=== PATIENT | female | born 1985 | race Caucasian/White ===

== ENCOUNTER 2020-01-22 17:33 | Emergency (ER) | payer SELFPAY ==
[~2020-01-22] VITALS: Ht 180.3 cm; Wt 63.0 kg
--- NOTE | 2020-01-22 17:43 | NUR ---
Contact Kimber Cruz, grandmother, for transportation @ timeof discharge.
[2020-01-22 18:19] LABS: URINE HCG NEGATIVE (NEG)
[2020-01-22 18:22] LABS: COLOR,URINE YELLOW (Yellow); GLUCOSE, URINE NEGATIVE (Neg); KETONES,URINE NEGATIVE (Neg); LEUKOCYTE ESTERASE ,URINE LARGE (Neg); NITRITES, URINE NEGATIVE (Neg); OCCULT BLOOD,URINE SMALL (Neg); PH,URINE 6.5 (4.8-8.0); PROTEIN,URINE NEGATIVE (Neg); UROBILINOGEN,URINE 0.2 E.U/dL (0.2-1.0)
[2020-01-22 18:23] LABS: CLARITY,URINE SLIGHTLY CLOUDY (Clear); UA COLLECTION TYPE CLN CATCH MIDSTREAM
[2020-01-22 18:32] LABS: BACTERIA,URINE FEW /HPF (Neg); RBC,URINE 0-2 /HPF (0-2); SQUAMOUS EPITHELIAL CELL,UR MODERATE /LPF (FEW)
[2020-01-22] MEDS ORDERED: cephalexin 250mg capsule PO ONE (18:45)
[2020-01-22 19:09] LABS: MEAN CORPUSCULAR HGB CONC 34.2 g/dL (33.0-36.5); RED BLOOD COUNT 4.71 X10'6 (4.20-5.60); RED CELL DISTRIBUTION WIDTH 13.7 % (11.5-14.5); WHITE BLOOD COUNT 7.1 X10'3 (4.5-11.0)
[2020-01-22 19:10] LABS: BASOPHILS # (AUTO) 0.1 X10'3 (0-0.2); BASOPHILS % (AUTO) 1.1 % (0-1); EOSINOPHILS # (AUTO) 0.2 X10'3 (0-0.9); EOSINOPHILS % (AUTO) 2.6 % (0-6); HEMATOCRIT 46.8 % (35.0-45.0); LYMPHOCYTES # (AUTO) 2.1 X10'3 (1.1-4.8); LYMPHOCYTES % (AUTO) 29.7 % (21-51); MEAN CORPUSCULAR VOLUME 99.4 FL (78-98); MEAN PLATELET VOLUME 7.8 FL (7.4-10.4); MONOCYTES # (AUTO) 0.4 X10'3 (0-0.9); MONOCYTES % (AUTO) 5.8 % (2-12); NEUTROPHILS # (AUTO) 4.3 X10'3 (1.8-7.7); NEUTROPHILS % (AUTO) 60.8 % (42-75); PLATELET COUNT 274 X10'3 (140-440)
[2020-01-22 19:19] LABS: ALANINE AMINOTRANSFERASE 21 U/L (12-78); ALBUMIN/GLOBULIN RATIO 1.1 (1.1-1.5); ALKALINE PHOSPHATASE 100 IU/L (46-116); ANION GAP 11 (8-16); ASPARTATE AMINO TRANSFERASE 27 U/L (10-37); BILIRUBIN,TOTAL 0.2 MG/DL (0.1-1.0); BLOOD UREA NITROGEN 14 MG/DL (7-18); BUN/CREATININE RATIO 15.9 (6.6-38.0); CALCIUM 8.6 MG/DL (8.5-10.1); CHLORIDE 110 MMOL/L (99-107); CREATININE 0.88 MG/DL (0.40-0.90); GLUCOSE 97 MG/DL (70-104); POTASSIUM 4.2 MMOL/L (3.5-5.1); SODIUM 146 MMOL/L (135-145); TOTAL CARBON DIOXIDE 24.6 MMOL/L (24-32); TOTAL PROTEIN 7.7 G/DL (6.4-8.2); eGFR 74 ML/MIN
[2020-01-22] MEDS ORDERED: CEPH500C5 PO (20:25)
[2020-01-22 20:45] VITALS: BP 119/75
== END 2020-01-22 20:46 | disposition home or self-care (01) ==
LOC: ER 17:33
DX: N39.0 Urinary tract infection, site not specified (principal); F17.210 Nicotine dependence, cigarettes, uncomplicated; F10.10 Alcohol abuse, uncomplicated
CPT/HCPCS: 36415; 80053; 81001; 81025; 85025; 87088; 99283

== ENCOUNTER 2021-11-29 10:39 | Emergency (ER) | payer MEDICAID, OTHER ==
[~2021-11-29] VITALS: Ht 180.3 cm; Wt 81.8 kg
[2021-11-29 10:44] VITALS: BP 132/93
[2021-11-29] MEDS ORDERED: ondansetron 4mg rapidly disintigrating tab PO ONE (10:50)
[2021-11-29] MEDS ORDERED: ONDA4TAB12 PO (12:09)
[2021-11-29] MEDS ORDERED: CYCL-1 PO (12:09)
--- NOTE | 2021-11-29 12:20 | NUR ---
Pt given and understands d/c instructions. Ambulatory with a steady gait.
== END 2021-11-29 12:20 | disposition home or self-care (01) ==
LOC: ER 10:39
DX: B34.9 Viral infection, unspecified (principal); Z20.822 Contact with and (suspected) exposure to COVID-19; M54.6 Pain in thoracic spine; R11.2 Nausea with vomiting, unspecified; R05.9 Cough, unspecified; Z72.89 Other problems related to lifestyle; Z79.899 Other long term (current) drug therapy
CPT/HCPCS: 71045; 87635; 99284; C9803

== ENCOUNTER 2021-12-04 03:49 | Inpatient (IN) | payer MEDICAID, OTHER ==
[~2021-12-04] VITALS: Ht 180.3 cm; Wt 81.8 kg
[~2021-12-04 03:49] MED LIST: CYCL-1 PO; ONDA4TAB12 PO
[2021-12-04 04:30] LABS: URINE HCG NEGATIVE (NEG)
[2021-12-04 04:31] LABS: CLARITY,URINE CLOUDY (Clear); GLUCOSE, URINE NEGATIVE (Neg); KETONES,URINE TRACE mg/dl (Neg); LEUKOCYTE ESTERASE ,URINE TRACE (Neg); NITRITES, URINE NEGATIVE (Neg); OCCULT BLOOD,URINE LARGE (Neg); PROTEIN,URINE 30 mg/dl (Neg)
[2021-12-04 04:33] LABS: UA COLLECTION TYPE CLN CATCH MIDSTREAM
[2021-12-04 04:34] LABS: COLOR,URINE DARK YELLOW (Yellow)
[2021-12-04 04:36] LABS: BASOPHILS # (AUTO) 0.1 X10'3 (0-0.2); EOSINOPHILS # (AUTO) 0.2 X10'3 (0-0.9); HEMOGLOBIN 13.6 g/dl (12.0-16.0); LYMPHOCYTES # (AUTO) 1.3 X10'3 (1.1-4.8); MEAN PLATELET VOLUME 8.9 FL (7.4-10.4)
[2021-12-04 04:37] LABS: BACTERIA,URINE 2+ /HPF (Neg); SQUAMOUS EPITHELIAL CELL,UR MANY /LPF (FEW)
[2021-12-04 04:38] LABS: BASOPHILS % (AUTO) 0.6 % (0-1); EOSINOPHILS % (AUTO) 1.5 % (0-6); HEMATOCRIT 39.9 % (35.0-45.0); LYMPHOCYTES % (AUTO) 9.3 % (21-51); MEAN CORPUSCULAR HEMOGLOBIN 34.2 PG (27.0-31.0); MEAN CORPUSCULAR HGB CONC 34.2 g/dL (33.0-36.5); MEAN CORPUSCULAR VOLUME 100.2 FL (78-98); MONOCYTES # (AUTO) 1.5 X10'3 (0-0.9); MONOCYTES % (AUTO) 10.9 % (2-12); NEUTROPHILS # (AUTO) 10.7 X10'3 (1.8-7.7); NEUTROPHILS % (AUTO) 77.7 % (42-75); PLATELET COUNT 215 X10'3 (140-440); RED BLOOD COUNT 3.99 X10'6 (4.20-5.60); WHITE BLOOD COUNT 13.8 X10'3 (4.5-11.0)
[2021-12-04 04:38] LABS: MUCUS STRANDS FEW /LPF (Neg); WBC CLUMPS,URINE FEW /HPF (NEGATIVE)
[2021-12-04 04:56] LABS: ALANINE AMINOTRANSFERASE 28 U/L (12-78); ALBUMIN 2.7 G/DL (3.4-5.0); ALBUMIN/GLOBULIN RATIO 0.6 (1.1-1.5); ALKALINE PHOSPHATASE 126 IU/L (46-116); ANION GAP 9 (8-16); ASPARTATE AMINO TRANSFERASE 33 U/L (10-37); BILIRUBIN,TOTAL 0.5 MG/DL (0.1-1.0); BLOOD UREA NITROGEN 10 MG/DL (7-18); BUN/CREATININE RATIO 10.5 (6.6-38.0); CALCIUM 9.1 MG/DL (8.5-10.1); CHLORIDE 94 MMOL/L (99-107); CREATININE 0.95 MG/DL (0.40-0.90); GLUCOSE 158 MG/DL (70-104); LIPASE 1467 U/L (73-393); POTASSIUM 3.5 MMOL/L (3.5-5.1); SODIUM 133 MMOL/L (135-145); TOTAL CARBON DIOXIDE 30.1 MMOL/L (24-32); TOTAL PROTEIN 7.2 G/DL (6.4-8.2); eGFR 67 ML/MIN
[2021-12-04] MEDS ORDERED: nitrofuran monohydrate/nitrofuran macrocrysal 100 MG (MacroBID) capsule PO ONE (05:30)
[2021-12-04] MEDS ORDERED: normal saline 1000ml 1,000 ML IV ONE (06:10)
[2021-12-04 07:57] LABS: TOTAL CELLS COUNTED 100
[2021-12-04 07:58] LABS: PLATELET ESTIMATE NORMAL; STOMATOCYTES 2+; TOXIC GRANULATION 1+; TOXIC VACUOLATION FEW
[2021-12-04 07:59] LABS: ANISOCYTOSIS FEW; LARGE PLATELETS FEW
[2021-12-04] MEDS ORDERED: acetaminophen 650mg rectal suppository RC PRN (09:05)
[2021-12-04] MEDS ORDERED: magnesium 2GM in 50ml NS 50 ML IV PRN (09:05)
[2021-12-04] MEDS ORDERED: haloperidol 5mg tablet PO PRN (09:05)
[2021-12-04] MEDS ORDERED: potassium CL 10mEq/100ml bag 100 ML IV PRN (09:05)
[2021-12-04] MEDS ORDERED: acetaminophen 325mg tablet PO PRN ×2 (09:05)
[2021-12-04] MEDS ORDERED: magnesium Cl slow-release 64mg tablet PO PRN (09:05)
[2021-12-04] MEDS ORDERED: diphenhydrAMINE 25mg capsule PO PRN (09:05)
[2021-12-04] MEDS ORDERED: LORazepam 2 mg/ml vial IV PRN (09:05)
[2021-12-04] MEDS ORDERED: magnesium hydroxide 30ml (MOM) UD suspension PO PRN (09:05)
[2021-12-04] MEDS ORDERED: mag hydrox/Alum hydrox/simeth 30ml oral suspension PO PRN (09:05)
[2021-12-04] MEDS ORDERED: HYDROcodone/acetaminophen 10/325mg tab PO PRN (09:05)
[2021-12-04] MEDS ORDERED: morphine 2 MG/ML inj. syringe IV PRN ×2 (09:05)
[2021-12-04] MEDS ORDERED: HYDROcodone/acetaminophen 5mg/325mg tablet PO PRN (09:05)
[2021-12-04] MEDS ORDERED: haloperidol lactate 5mg/ml inj IM PRN (09:05)
[2021-12-04] MEDS ORDERED: bisacodyl 10mg suppository rectal RC PRN (09:05)
[2021-12-04] MEDS ORDERED: dextrose 50%-water 50ml dispensing syringe IV PRN (09:05)
[2021-12-04] MEDS ORDERED: magnesium 4gm in 100ml NS 100 ML IV PRN (09:05)
[2021-12-04] MEDS ORDERED: ondansetron/PF 4mg/2ml inj IV PRN (09:05)
[2021-12-04] MEDS ORDERED: potassium Cl 20 mEq SR tablet PO PRN (09:05)
[2021-12-04] MEDS ORDERED: ondansetron 4mg rapidly disintigrating tab PO PRN (09:05)
[2021-12-04] MEDS: dextrose 5%-normal saline 1,000 ML IV SCH ×2 (09:15→17:00)
[2021-12-04] MEDS: piperacillin/tazo 3.375gm/50ml 50 ML IV SCH ×2 (09:15→16:13)
[2021-12-04] MEDS: pantoprazole 40MG/NS 100ML BAG 100 ML IV SCH ×2 (09:45→20:38)
[2021-12-04] MEDS ORDERED: NO HOME MEDS (10:01)
[2021-12-04 10:25] LABS: HEMOGLOBIN A1C 5.6 % (4.5-6.2)
--- NOTE | 2021-12-04 11:14 | NUR ---
patient awake,sitting at the edge of the bed.
[2021-12-04 15:00] VITALS: BP 116/73
[2021-12-04] MEDS: thiamine 100mg/ml 2ml inj. IV SCH ×2 (15:17→20:43)
--- NOTE | 2021-12-04 16:08 | NUR ---
Received patient from ER by 1230, in stable condition. Oriented to surrounding, safety maintained.
--- NOTE | 2021-12-04 18:42 | NUR ---
Problems reprioritized. Patient report given, questions answered & plan of care reviewed with Pepe/RN.
--- NOTE | 2021-12-04 18:45 | NUR ---
Patient in room PCU 3018. I have received report from Rudy SHOEMAKER and had the opportunity to ask questions and assume patient care.
[2021-12-04 19:00] VITALS: BP 126/84
[2021-12-04] MEDS ORDERED: K and/or MAG REPLACEMENT MC SCH (20:00)
[2021-12-04] MEDS: docusate sod 100mg capsule PO SCH (20:38)
[2021-12-04] MEDS: heparin, porcine 5000 units/ml vial SQ SCH (20:39)
[2021-12-04 22:00] VITALS: BP 121/76
[2021-12-05] MEDS: piperacillin/tazo 3.375gm/50ml 50 ML IV SCH ×3 (01:08→16:00)
[2021-12-05 02:00] VITALS: BP 108/62
[2021-12-05] MEDS: dextrose 5%-normal saline 1,000 ML IV SCH ×3 (05:34→17:00)
[2021-12-05 06:00] VITALS: BP 128/71
[2021-12-05 06:44] LABS: BASOPHILS % (AUTO) 0.4 % (0-1); EOSINOPHILS # (AUTO) 0.2 X10'3 (0-0.9); EOSINOPHILS % (AUTO) 2.2 % (0-6); HEMATOCRIT 34.2 % (35.0-45.0); HEMOGLOBIN 11.7 g/dl (12.0-16.0); LYMPHOCYTES % (AUTO) 9.1 % (21-51); MEAN CORPUSCULAR HEMOGLOBIN 34.4 PG (27.0-31.0); MEAN CORPUSCULAR HGB CONC 34.3 g/dL (33.0-36.5); MEAN CORPUSCULAR VOLUME 100.3 FL (78-98); MEAN PLATELET VOLUME 8.3 FL (7.4-10.4); MONOCYTES % (AUTO) 9.2 % (2-12); NEUTROPHILS # (AUTO) 8.7 X10'3 (1.8-7.7); NEUTROPHILS % (AUTO) 79.1 % (42-75); PLATELET COUNT 236 X10'3 (140-440); RED BLOOD COUNT 3.41 X10'6 (4.20-5.60); RED CELL DISTRIBUTION WIDTH 13.5 % (11.5-14.5)
[2021-12-05 07:06] LABS: ALANINE AMINOTRANSFERASE 27 U/L (12-78); ALBUMIN 2.1 G/DL (3.4-5.0); ALBUMIN/GLOBULIN RATIO 0.6 (1.1-1.5); ALKALINE PHOSPHATASE 98 IU/L (46-116); ANION GAP 11 (8-16); ASPARTATE AMINO TRANSFERASE 30 U/L (10-37); BILIRUBIN,TOTAL 0.4 MG/DL (0.1-1.0); BLOOD UREA NITROGEN 7 MG/DL (7-18); BUN/CREATININE RATIO 9.1 (6.6-38.0); CALCIUM 8.1 MG/DL (8.5-10.1); CHLORIDE 101 MMOL/L (99-107); CHOL/HDL RATIO 6.8 (0.00-4.99); CHOLESTEROL 130 MG/DL (0-200); CREATININE 0.77 MG/DL (0.40-0.90); GLUCOSE 149 MG/DL (70-104); HDL CHOLESTEROL 19 MG/DL (35-60); LDL CHOLESTEROL 81 MG/DL (50-100); LIPASE 1506 U/L (73-393); MAGNESIUM 2.1 MG/DL (1.5-2.4); POTASSIUM 3.1 MMOL/L (3.5-5.1); SODIUM 139 MMOL/L (135-145); TOTAL CARBON DIOXIDE 27.3 MMOL/L (24-32); TOTAL PROTEIN 5.7 G/DL (6.4-8.2); TRIGLYCERIDES 182 MG/DL (20-135); eGFR 85 ML/MIN
[2021-12-05] MEDS: heparin, porcine 5000 units/ml vial SQ SCH (08:00)
[2021-12-05] MEDS: pantoprazole 40MG/NS 100ML BAG 100 ML IV SCH (08:00)
[2021-12-05] MEDS: docusate sod 100mg capsule PO SCH (08:00)
[2021-12-05] MEDS ORDERED: folic acid 1mg/0.2ml inj IV SCH (08:00)
[2021-12-05] MEDS: thiamine 100mg/ml 2ml inj. IV SCH ×2 (08:18→13:00)
[2021-12-05 08:41] LABS: NUCLEATED RED BLOOD CELLS 1 /100WBC (0-0); PLATELET ESTIMATE NORMAL; TOTAL CELLS COUNTED 100
[2021-12-05 08:42] LABS: LARGE PLATELETS FEW
[2021-12-05] MEDS: potassium Cl 20 mEq SR tablet PO PRN ×2 (10:48→17:24)
--- NOTE | 2021-12-05 11:17 | NUR ---
Met with patient in regards to substance use and to see if patient was interested in treatment options. Patient declined treatment and said she doesn't need help.
--- NOTE | 2021-12-05 17:12 | NUR ---
Orders for clear liquid diet put in per Dr. Joseph.
--- NOTE | 2021-12-05 18:44 | NUR ---
Dr. Joseph reported to nurse patient wanted to leave AMA and pt left AMA.
[2021-12-06] MEDS ORDERED: LORazepam 1 MG tablet PO PRN (09:05)
[2021-12-06] MEDS ORDERED: LORazepam 2 mg/ml vial IV PRN (09:05)
[2021-12-08] MEDS ORDERED: LORazepam 1 MG tablet PO PRN (09:05)
[2021-12-08] MEDS ORDERED: LORazepam 2 mg/ml vial IV PRN (09:05)
[2021-12-09] MEDS ORDERED: folic acid 1mg tablet PO SCH (08:00)
[2021-12-09] MEDS ORDERED: thiamine 100mg tablet PO SCH (08:00)
== END 2021-12-05 17:49 | disposition left against medical advice (07) | DRG 720 ==
LOC: ER 03:50 → ED HOLD 09:07 → PCU 3S 12:16
PROVIDERS: ADMIT Family Medicine; ATTEND Family Medicine
DX: A41.9 Sepsis, unspecified organism (principal); K85.20 Alcohol induced acute pancreatitis without necrosis or infection; F10.20 Alcohol dependence, uncomplicated; Z53.29 Procedure and treatment not carried out because of patient's decision for other reasons; N39.0 Urinary tract infection, site not specified; F17.210 Nicotine dependence, cigarettes, uncomplicated; Z71.6 Tobacco abuse counseling
CPT/HCPCS: 36415; 74176; 80053; 80061; 81001; 81025; 83036; 83605; 83690; 83735; 84100; 85007; 85025; 87040; 87081; 99285; C9113; G0378; J1644; J2543; J3411; J3490; J7030; J7042

== ENCOUNTER 2024-05-10 18:13 | Emergency (ER) | payer MEDICAID, OTHER ==
[~2024-05-10] VITALS: Ht 180.3 cm; Wt 84.1 kg
[~2024-05-10 18:13] MED LIST changes: -CYCL-1 PO; +NO HOME MEDS; -ONDA4TAB12 PO
[2024-05-10] MEDS: LIDOcaine 1% W/epiNEPHrine 1:100,000 20ml vial IJ ONE (19:10)
[2024-05-10] MEDS: acetaminophen 1,000mg/100ml IV 100 ML IV ONE (19:10)
[2024-05-10] MEDS: TETanus/Pertussis (Acell)/Diphther VAC/PF (Tdap-Adult) 0.5ml syringe IMVAC ONE (19:11)
[2024-05-10] MEDS: ceFAZolin/D5W- 1GM premix 50 ML IV ONE (21:09)
[2024-05-10] MEDS: propofol 10mg/ml 20ml vial IV ONE ×2 (21:41→22:35)
[2024-05-10] MEDS ORDERED: CEPH-585 PO (22:20)
[2024-05-10] MEDS: propofol 1000mg/100ml bottle 100 ML IV ONE (22:37)
[2024-05-10 22:41] VITALS: TEMP 98.6
[2024-05-10] MEDS: propofol (Diprivan) 10mg/ml 100ml bottle IV ONE (22:41)
[2024-05-10 22:47] VITALS: BP 122/88; PULSE 99; RESP 13; O2SAT 97
[2024-05-10] MEDS: normal saline 1000ML IV soln IVB ONE (22:48)
== END 2024-05-10 22:59 | disposition home or self-care (01) ==
LOC: ER 18:13
DX: S05.31XA Ocular laceration without prolapse or loss of intraocular tissue, right eye, initial encounter (principal); F10.129 Alcohol abuse with intoxication, unspecified; W18.39XA Other fall on same level, initial encounter; Y93.89 Activity, other specified; Y92.89 Other specified places as the place of occurrence of the external cause; Y99.8 Other external cause status
CPT/HCPCS: 12013; 70450; 70486; 90471; 90715; 96361; 96365; 99285; J0690; J2704; J7030; 94760; 99152; A4620

== ENCOUNTER 2024-05-16 09:44 | Emergency (ER) | payer OTHER, MEDICAID ==
[~2024-05-16] VITALS: Ht 180.3 cm; Wt 84.1 kg
[~2024-05-16 09:44] MED LIST changes: +CEPH-585 PO
[2024-05-16 10:55] VITALS: BP 131/80; PULSE 64; RESP 16; TEMP 98; O2SAT 99
== END 2024-05-16 10:56 | disposition home or self-care (01) ==
LOC: ER 09:44
DX: S01.81XD Laceration without foreign body of other part of head, subsequent encounter (principal); Z79.2 Long term (current) use of antibiotics; X58.XXXD Exposure to other specified factors, subsequent encounter
CPT/HCPCS: 99281